=== PATIENT | male | born 1995 | race Caucasian/White ===

== ENCOUNTER 2018-09-30 10:28 | Emergency (ER) | payer OTHER ==
[2018-09-30 11:28] VITALS: BP 130/63
[2018-09-30] MEDS ORDERED: Albuterol/Ipratropium NEB.SOL* Albuterol 2.5 MG/Ipratropium 0.5 MG 3 ML INH ONE (12:34)
--- NOTE | 2018-09-30 12:40 | UC ---
Respiratory Complaint HPI - HPI Summary HPI Summary: Patient monserrat hx of spinal muscle atrophy, complaining of increased cough and SOB over the past week, Has been using albuterol neb, without any affectedness. felt like he had fever and chills last night, took tylenol with good relief - History of Current Complaint Chief Complaint: UCRespiratory Stated Complaint: COUGH, CONGESTION Time Seen by Provider: 09/30/18 12:29 Hx Obtained From: Patient Onset/Duration: Sudden Onset, Lasting Weeks Timing: Constant Severity Initially: Mild Severity Currently: Moderate Pain Intensity: 0 Character: Cough: Productive Aggravating Factors: Exertion, Deep Breaths, Recumbent Position Alleviating Factors: Nothing Associated Signs And Symptoms: Positive: Fever, Chills, Wheezing, URI - Allergies/Home Medications Allergies/Adverse Reactions: Allergies Allergy/AdvReac Type Severity Reaction Status Date / Time escitalopram [From Lexapro] Allergy gets Verified 09/30/18 11:17 violent PMH/Surg Hx/FS Hx/Imm Hx Previously Healthy: No - muscular atrophy - Surgical History Surgical History: Yes Surgery Procedure, Year, and Place: MUSCLE BIOPSY AGE 1 - Family History Known Family History: Positive: Hypertension - Social History Alcohol Use: None Substance Use Type: None Smoking Status (MU): Never Smoked Tobacco - Immunization History Most Recent Influenza Vaccination: no Review of Systems Constitutional: Fever, Chills Skin: Negative Eyes: Negative ENT: Nasal Discharge, Sinus Congestion Respiratory: Shortness Of Breath, Cough Cardiovascular: Negative Gastrointestinal: Negative Genitourinary: Negative Motor: Negative Neurovascular: Negative Musculoskeletal: Negative Neurological: Negative Psychological: Negative Is Patient Immunocompromised?: No All Other Systems Reviewed And Are Negative: Yes Physical Exam Triage Information Reviewed: Yes Appearance: No Pain Distress, Ill-Appearing, Obese Vital Signs: Initial Vital Signs Temp 18 F 09/30/18 11:19 Pulse 106 09/30/18 11:19 Resp 18 09/30/18 11:19 BP 130/63 09/30/18 11:19 Pulse Ox 97 09/30/18 11:19 Vital Signs Reviewed: Yes Eye Exam: Normal ENT: Positive: Pharynx normal, TM bulging, Sinus tenderness Dental Exam: Normal Neck exam: Normal Neck: Positive: Supple, Nontender, No Lymphadenopathy Respiratory: Positive: No accessory muscle use, Decreased breath sounds, Wheezing, Inspiration Cardiovascular Exam: Normal Cardiovascular: Positive: No Murmur, Pulses Normal, Tachycardia Abdominal Exam: Normal Abdomen Description: Positive: Nontender, No Organomegaly, Soft Musculoskeletal: Positive: Other: - patient is wheelchair bound, limited use of arms Neurological Exam: Normal Psychological Exam: Normal Skin Exam: Normal UC Diagnostic Evaluation - Laboratory O2 Sat by Pulse Oximetry: 97 Respiratory Course/Dx - Course Course Of Treatment: hc obtained, exam performed meds reviewed, neb treatment given, treated for bronchitis and sinusitis, - Differential Dx/Diagnosis Differential Diagnosis/HQI/PQRI: Asthma, Bronchitis, Laryngitis, Lower Resp Infection, Sinusitis Provider Diagnoses: acute bronchitis. sinusitis Discharge - Sign-Out/Discharge Documenting (check all that apply): Patient Departure All imaging exams completed and their final reports reviewed: Yes - Discharge Plan Condition: Stable Disposition: HOME Prescriptions: Azithromyxin RADHA (NF) [Z-Radha (Zithromax) 250 mg tabs #6] 2 tab PO .TODAY, THEN 1 DAILY #6 tab Referrals: Holly Fagan MD [Primary Care Provider] - Additional Instructions: 1. use the medication a sprescribed. 2. Continue with tylenol as neede for fever 3. INcrease fluid intake and get plenty of rest 4. follow up with your MD atthe end of the week, sooner if not improving - Billing Disposition and Condition Condition: STABLE Disposition: Home
== END 2018-09-30 13:12 | disposition home or self-care (01) ==
LOC: UCCORT 10:28
DX: J20.9 Acute bronchitis, unspecified (principal); J01.90 Acute sinusitis, unspecified
CPT/HCPCS: 99212; A9270-GY; G0463

== ENCOUNTER 2019-10-20 12:45 | Emergency (ER) | payer OTHER ==
[2019-10-20 13:05] VITALS: BP 109/74
--- NOTE | 2019-10-20 13:09 | UC ---
Respiratory Complaint HPI - HPI Summary HPI Summary: 24 year old male with h/o spinal muscular atrophy stage 2/wheelchair bound presents with complaint of progressive cough and chest congestion and wheezing over the past week. He was treated with a Z-chelle by his PCP (finished yesterday) . Using albuterol neb tid prn since yesterday with good results. He has previously had pneumonia and is concerned about getting it again. - History of Current Complaint Chief Complaint: UCRespiratory Stated Complaint: WHEEZY COUGH RUNNY NOSE Time Seen by Provider: 10/20/19 12:59 Onset/Duration: Gradual Onset, Lasting Days - 7 Pain Intensity: 0 - Allergies/Home Medications Allergies/Adverse Reactions: Allergies Allergy/AdvReac Type Severity Reaction Status Date / Time escitalopram [From Lexapro] Allergy gets Verified 10/20/19 12:59 violent PMH/Surg Hx/FS Hx/Imm Hx Previously Healthy: Yes - spinal muscular atrophy stage 2 Respiratory History: Pneumonia - previously Psychological History: Anxiety - Surgical History Surgical History: Yes Surgery Procedure, Year, and Place: MUSCLE BIOPSY AGE 1 - Family History Known Family History: Positive: Hypertension - Social History Alcohol Use: None Substance Use Type: None Smoking Status (MU): Never Smoked Tobacco - Immunization History Most Recent Influenza Vaccination: no Review of Systems All Other Systems Reviewed And Are Negative: Yes Constitutional: Negative: Fever, Chills, Fatigue Skin: Negative: Rash Eyes: Positive: Negative ENT: Positive: Sore Throat - one week ago, resolved. Negative: Ear Ache, Nasal Discharge Respiratory: Positive: Cough, Other - wheezing. Negative: Shortness Of Breath Cardiovascular: Positive: Palpitations - chronic. Negative: Chest Pain Gastrointestinal: Negative: Abdominal Pain, Vomiting, Diarrhea, Nausea Genitourinary: Positive: Negative Motor: Positive: Other - utilzes electric wheelchair due to spinal muscular atrophy stage 2 Neurovascular: Positive: Negative Musculoskeletal: Positive: Other: - spinal muscular atrophy stage 2 Neurological: Negative: Headache, Weakness - baseine Psychological: Positive: Anxious - on Xanax Is Patient Immunocompromised?: No Physical Exam Triage Information Reviewed: Yes Appearance: Well-Appearing, No Pain Distress Vital Signs: Initial Vital Signs Temp 98.7 F 10/20/19 12:59 Pulse 88 10/20/19 12:59 Resp 16 10/20/19 12:59 BP 109/74 10/20/19 12:59 Pulse Ox 99 10/20/19 12:59 Vital Signs Reviewed: Yes Eye Exam: Normal ENT: Positive: Normal ENT inspection Neck: Positive: Supple, Nontender, No Lymphadenopathy Respiratory: Positive: No respiratory distress, Rhonchi - scattered bilaterally , Wheezing - bialteral. Negative: Crackles, Stridor Cardiovascular: Positive: RRR, No Murmur, Brisk Capillary Refill. Negative: Tachycardia, Bradycardia Abdomen Description: Positive: Nontender, Soft Musculoskeletal: Positive: ROM Limited @ - secondary to spinal muscular atrophy stage 2 Neurological: Positive: Abnormal Muscle Tone - secondary to spinal muscular atrophy stage 2 Psychological Exam: Other - anxious Diagnostics - Radiology No standard instances Radiology Interpretation Completed By: Radiologist Summary of Radiographic Findings: Finishing Range Supervisor: Krystal De León S ([id number]) Electronic Design Engineer: JESÚS ([email or web address]) Report Date: 10/20/2019 14:36:00 Report Status: Final Start of Report Content Patient Name: RAINER STEINBERG Medical Record#: [id number] Ordering Physician: Matias Sosa MD Acct.#: [id number] : 1995 Age: 24 Sex: M Location: [facility] Exam Date: 10/20/19 1327 ADM Status: REG ER Order Information: CHEST AP OR PORT Accession Number: [id number] CPT: 92671 Indication: Cough, wheezing. Single frontal view of the chest performed at 1400 hours was reviewed. Comparison is made with previous exam dated June 05, 2015.. No mediastinal shift is noted. Marked scoliosis is noted. Increased density in the right base may represent right basilar atelectasis. IMPRESSION: LIKELY RIGHT BASE ATELECTASIS. ____ <Electronically signed by Krystal De León MD in OV> 10/20/19 1432 Dictated By: Krystal De León MD Dictated Date/Time: 10/20/191410 Transcribed Date/Time: 1410 Copy to: CC:Holly Fagan MD; Matias Sosa MD Imaging - [facility] Imaging - [facility] Imaging - [facility] [address] [place] [address] ph ([phone]) ph ([phone]) ph ([phone]) ===== End of Report Content Respiratory Course/Dx - Course Course Of Treatment: Patient states he is not prescribed oral steroids due to fear of worsening of his muscular disorder. He appears well, no acute respiratory distress, afebrile and oxygen saturation is normal. He states he is usually prescribed two courses of Z-chelle however, there is risk of QT prolongation with doing this. As a result , I have prescribed Doxycyline instead with close follow-up with his Primary Care Physician. - Differential Dx/Diagnosis Provider Diagnosis: Bronchitis Discharge ED - Sign-Out/Discharge Documenting (check all that apply): Patient Departure All imaging exams completed and their final reports reviewed: Yes - Discharge Plan Condition: Stable Disposition: HOME Prescriptions: Budesonide NEB* [Pulmicort Neb*] 0.25 mg INH BID #60 chelle DOXYcycline CAP(*) [DOXYcycline 100MG CAP(*)] 100 mg PO BID 10 Days #20 cap Patient Education Materials: Acute Bronchitis (ED) Referrals: Holly Fagan MD [Primary Care Provider] - Additional Instructions: Take all antibiotics as prescribed. Start using the nebulized steroid twice daily along with your albuterol nebulizer every 4-6 hours as needed for wheezing. If your symptoms worsen or if your develop shortness of breath, fever or chest pain despite treatment, recommend further evaluation in the Emergency Department. Otherwise, follow-up with your Primary Care Physician within the next week. - Billing Disposition and Condition Condition: STABLE Disposition: Home
[2019-10-20] MEDS ORDERED: Albuterol/Ipratropium NEB.SOL* Albuterol 2.5 MG/Ipratropium 0.5 MG 3 ML INH ONE (13:28)
== END 2019-10-20 14:58 | disposition home or self-care (01) ==
LOC: UCCORT 12:45
DX: J40 Bronchitis, not specified as acute or chronic (principal); G12.9 Spinal muscular atrophy, unspecified; Z88.8 Allergy status to other drugs, medicaments and biological substances; Z99.3 Dependence on wheelchair
CPT/HCPCS: 71045; 99212; A9270-GY; G0463

== ENCOUNTER 2020-02-05 20:56 | Emergency (ER) | payer OTHER ==
[2020-02-05 21:06] VITALS: BP 124/60
[2020-02-05] MEDS ORDERED: Ibuprofen TAB* 400 MG PO ONE (21:20)
--- NOTE | 2020-02-05 21:29 | UC ---
Throat Pain/Nasal Loc HPI - HPI Summary HPI Summary: 24-year-old male comes in with a chief complaints of continued a half of sore throat and chest tightness with some nasal congestion. Is also been fatigued sleeping more. Patient has a neuromuscular disorder and is confined to a wheelchair. Patient reports she's had pneumonia before and is most concerned about pneumonia. - History of Current Complaint Chief Complaint: UCGeneralIllness Stated Complaint: SINUS Time Seen by Provider: 02/05/20 21:05 Pain Intensity: 0 - Allergies/Home Medications Allergies/Adverse Reactions: Allergies Allergy/AdvReac Type Severity Reaction Status Date / Time escitalopram [From [id number]] Allergy gets Verified 02/05/20 21:06 violent Home Medications: Home Medications Albuterol 2.5MG/3ML (0.083%)* [Ventolin 2.5 MG/3 ML NEB.KRISTAL*] 2.5 mg INH Q6H PRN 10/19/15 [History Confirmed 02/05/20] Alprazolam XR (NF) [Xanax XR (NF)] 1 mg PO TID 10/19/15 [History Confirmed 02/04] PARoxetine HCL TAB* [Paxil TAB*] 10 mg PO BEDTIME 10/19/15 [History Confirmed ] Budesonide NEB* [Pulmicort Neb*] 0.25 mg INH BID PRN 02/05/20 [History Confirmed 02/05/20] DOXYcycline CAP(*) [DOXYcycline 100MG CAP(*)] 100 mg PO BID #18 cap 02/05/20 [Rx ] Ibuprofen TAB* [Advil TAB*] 400 mg PO Q6H PRN 02/05/20 [History Confirmed ] PMH/Surg Hx/FS Hx/Imm Hx Previously Healthy: Yes - MUSCULAR DISORDER - Surgical History Surgical History: Yes Surgery Procedure, Year, and Place: MUSCLE BIOPSY AGE 1 - Family History Known Family History: Positive: Hypertension - Social History Alcohol Use: None Substance Use Type: None Smoking Status (MU): Never Smoked Tobacco - Immunization History Most Recent Influenza Vaccination: no Review of Systems All Other Systems Reviewed And Are Negative: Yes Constitutional: Positive: Other - SEE HPI Skin: Positive: Negative Eyes: Positive: Negative ENT: Positive: Sore Throat, Nasal Discharge, Sinus Congestion Respiratory: Positive: Cough Cardiovascular: Positive: Other - SEE HPI Gastrointestinal: Positive: Negative Motor: Positive: Other - CHRONIC WEAKNESS Neurovascular: Positive: Negative Musculoskeletal: Positive: Negative Neurological/Mental Status: Positive: Other - CHRONIC WEAKNESS Psychological: Positive: Negative Is Patient Immunocompromised?: No Physical Exam Triage Information Reviewed: Yes Appearance: Well-Appearing, No Pain Distress, Well-Nourished Vital Signs: Initial Vital Signs Temp 98.9 F 02/05/20 21:03 Pulse 110 02/05/20 21:03 Resp 16 02/05/20 21:03 BP 124/60 02/05/20 21:03 Pulse Ox 100 02/05/20 21:03 Vital Signs Reviewed: Yes Eye Exam: Normal Eyes: Positive: Conjunctiva Clear ENT: Positive: Pharynx normal, Nasal congestion, TMs normal Neck: Positive: Supple Respiratory: Positive: Lungs clear Cardiovascular: Positive: RRR Musculoskeletal: Positive: Other: - Generalized chronic weakness. Neurological: Positive: Other: - Chronic generalized weakness Psychological: Positive: Normal Response To Family, Age Appropriate Behavior Skin Exam: Normal Throat Pain/Nasal Course/Dx - Course Course Of Treatment: Strep and flu were negative. I discussed the chest x-ray with the patient and his mother. I do not see any infiltrate radiologist reading is pending. Discussed viral versus bacterial infections the patient prefers to be on antibiotics at this time. We'll treat with doxycycline as he reports that was successful in the past. He has albuterol at home. Plan is for him to follow- up his primary care doctor go the emergency department if worse or any questions or concerns. - Differential Dx/Diagnosis Provider Diagnosis: Upper respiratory infection Discharge ED - Sign-Out/Discharge Documenting (check all that apply): Patient Departure All imaging exams completed and their final reports reviewed: No - Discharge Plan Condition: Stable Disposition: HOME Prescriptions: DOXYcycline CAP(*) [DOXYcycline 100MG CAP(*)] 100 mg PO BID #18 cap Patient Education Materials: Upper Respiratory Infection (ED) Referrals: Holly Fagan MD [Primary Care Provider] - Additional Instructions: FOLLOW UP WITH YOUR DOCTOR. GO TO THE EMERGENCY DEPARTMENT IF WORSE OR ANY QUESTIONS OR CONCERNS. - Billing Disposition and Condition Condition: STABLE Disposition: Home
[2020-02-05 21:47] LABS: Influenza A Molecular Negative (Negative); Influenza B Molecular Negative (Negative)
[2020-02-05] MEDS ORDERED: DOXYcycline CAP(*) 100 MG PO ONE (21:51)
--- NOTE | 2020-02-06 07:55 | UC ---
- Progress Note Progress Note: No change from wet reading. Negative chest xray. Patient Name: RAINER STEINBERG Medical Record#: [id number] Ordering Physician: Reji Diaz MD Acct.#: [id number] : 1995 Age: 24 Sex: M Location: [facility] Exam Date: 02/05/202128 ADM Status: [facility] ER Order Information: CHEST PA 1 VW Accession Number: [id number] CPT: 74197 INDICATION: Cough COMPARISON: October 20, 2019 TECHNIQUE: Dual-energy PA views of the chest were obtained. FINDINGS: Evaluation complicated by difficult patient positioning and body habitus. The hypoinflated lungs are clear (the right lateral costophrenic angle is not imaged). There is no pleural effusion. The cardiomediastinal silhouette is within normal limits. The upper abdominal contents are normal. There is scoliotic curvature. IMPRESSION: No acute cardiopulmonary process by radiograph. R0 Preliminary Imaging Read R0 <Electronically signed by Teo Nava MD in [place]> 02/06/20743 Dictated By: Teo Nava MD Dictated Date/Time: 02/06/20741 Transcribed Date/Time: 02/06/20741 Copy to: CC:Holly Fagan MD; Reji Diaz MD Imaging - [facility] This report is only to be considered final once signed by the Provider(s) as displayed in the "<Electronically Signed by >" field (s). Absence of a signature indicates the report is in a draft status and still needs to be finalized. In the event this document was created by someone other than the signing Provider, the individual initiating the document will be listed in the "Entered by:" or "Dictated by:" ramirez. 1 of 2 NO Course/Dx - Diagnoses Provider Diagnoses: Upper respiratory infection Discharge ED - Sign-Out/Discharge Documenting (check all that apply): Post-Discharge Follow Up All imaging exams completed and their final reports reviewed: Yes - Discharge Plan Condition: Stable Disposition: HOME Prescriptions: DOXYcycline CAP(*) [DOXYcycline 100MG CAP(*)] 100 mg PO BID #18 cap Patient Education Materials: Upper Respiratory Infection (ED) Referrals: Holly Fagan MD [Primary Care Provider] - Additional Instructions: FOLLOW UP WITH YOUR DOCTOR. GO TO THE EMERGENCY DEPARTMENT IF WORSE OR ANY QUESTIONS OR CONCERNS. - Billing Disposition and Condition Condition: STABLE Disposition: Home
== END 2020-02-05 21:58 | disposition home or self-care (01) ==
LOC: UCCORT 20:56
DX: J06.9 Acute upper respiratory infection, unspecified (principal); R53.83 Other fatigue; Z88.8 Allergy status to other drugs, medicaments and biological substances; R53.1 Weakness
CPT/HCPCS: 71045; 87651; 99212; A9270-GY; G0463